=== PATIENT | female | born 1945 | race Caucasian/White ===

== ENCOUNTER 2017-11-09 05:27 | Day surgery (SDC) | payer OTHER ==
[~2017-11-09] VITALS: Ht 162.6 cm; Wt 68.0 kg
[~2017-11-09 05:27] MED LIST: CENTRUM SILVER1 EAC3 PO; CO Q-10200 MG PO; HYZAAR 100-21 TABLET PO; LEXAPRO10 MG PO; LIVALO2 MG PO; TOPROL XL25 MG PO; [UNRECOGNIZED DRUG - OTHER] PO
[2017-11-09 06:17] VITALS: BP 157/70
[2017-11-09 09:25] VITALS: BP 122/39
[2017-11-09 10:25] VITALS: BP 137/46
== END 2017-11-09 10:47 | disposition home or self-care (01) ==
LOC: SDC 05:27
PROVIDERS: Ophthalmology
DX: H35.372 Puckering of macula, left eye (principal); I10 Essential (primary) hypertension; K21.9 Gastro-esophageal reflux disease without esophagitis
CPT/HCPCS: 82948; J0360; J0690; J0713; J2405; J2795; J3300